=== PATIENT | female | born 1960 | race Caucasian/White ===

== ENCOUNTER 2018-09-11 17:27 | Emergency (ER) | payer BC, OTHER ==
[2018-09-11 17:54] VITALS: BP 107/65
[2018-09-11] MEDS ORDERED: Albuterol 2.5 MG/3 ML NEB.SOL* (0.083%) INH ONE (18:06)
--- NOTE | 2018-09-11 18:06 | UC ---
Respiratory Complaint HPI - HPI Summary HPI Summary: treated for bronchitis a few weeks ago rx tesruiz, ronalddejan and prednisone has been using her luis inhaler--no fevers---feels like symptoms are returning--- chest hurts to cough gets relief with MDI - History of Current Complaint Chief Complaint: UCRespiratory Stated Complaint: COUGH Time Seen by Provider: 09/11/18 17:54 Hx Obtained From: Patient ?: No Onset/Duration: Gradual Onset, Lasting Days, Still Present Timing: Constant Pain Intensity: 0 Character: Cough: Nonproductive Aggravating Factors: Deep Breaths Alleviating Factors: Bronchodilator Associated Signs And Symptoms: Positive: Pleuritic Chest Pain, URI - Allergies/Home Medications Allergies/Adverse Reactions: Allergies Allergy/AdvReac Type Severity Reaction Status Date / Time Penicillins Allergy Rash And Verified 09/11/18 17:54 Itching Home Medications: Home Medications Alendronate Sodium [Fosamax-] 70 mg PO Q7D 09/11/18 [History Confirmed 09/11/18] Multivitamin [Multivitamins] 1 cap PO DAILY 09/11/18 [History Confirmed 09/11/18 ] Sertraline* [Zoloft*] 50 mg PO DAILY 09/11/18 [History Confirmed 09/11/18] PMH/Surg Hx/FS Hx/Imm Hx Psychological History: Depression - Surgical History Surgical History: None - Family History Known Family History: Positive: None - Social History Occupation: Works From/At Home Lives: With Family Alcohol Use: Weekly Alcohol Amount: 3X Substance Use Type: None Smoking Status (MU): Former Smoker Review of Systems All Other Systems Reviewed And Are Negative: Yes Constitutional: Positive: Negative Skin: Positive: Negative Eyes: Positive: Negative ENT: Positive: Negative Respiratory: Positive: Cough Cardiovascular: Positive: Negative Gastrointestinal: Positive: Negative Genitourinary: Positive: Negative Motor: Positive: Negative Neurovascular: Positive: Negative Musculoskeletal: Positive: Negative Neurological: Positive: Negative Psychological: Positive: Negative Is Patient Immunocompromised?: No Physical Exam Triage Information Reviewed: Yes Appearance: Well-Appearing, No Pain Distress, Well-Nourished Vital Signs: Initial Vital Signs Temp 99.2 F 09/11/18 17:51 Pulse 75 09/11/18 17:51 Resp 16 09/11/18 17:51 BP 107/65 09/11/18 17:51 Pulse Ox 98 09/11/18 17:51 Vital Signs Reviewed: Yes Eye Exam: Normal Eyes: Positive: Conjunctiva Clear ENT Exam: Normal ENT: Positive: Normal ENT inspection, Hearing grossly normal. Negative: Nasal congestion, Trismus, Muffled voice, Hoarse voice Neck exam: Normal Neck: Positive: Supple, Nontender, No Lymphadenopathy Respiratory Exam: Normal Respiratory: Positive: Chest non-tender, Lungs clear, Normal breath sounds, No respiratory distress, No accessory muscle use Cardiovascular Exam: Normal Cardiovascular: Positive: RRR, No Murmur, Pulses Normal, Brisk Capillary Refill Musculoskeletal Exam: Normal Musculoskeletal: Positive: Strength Intact, ROM Intact, No Edema Neurological Exam: Normal Neurological: Positive: Alert, Muscle Tone Normal Psychological Exam: Normal Skin Exam: Normal Respiratory Course/Dx - Course Course Of Treatment: albuterol, prednisone, zyrtec if sx fail to resolve or worsen add doxycycline follow with pcp - Differential Dx/Diagnosis Provider Diagnosis: Allergic bronchitis without complication Discharge - Sign-Out/Discharge Documenting (check all that apply): Patient Departure All imaging exams completed and their final reports reviewed: No Studies - Discharge Plan Condition: Stable Disposition: HOME Prescriptions: Albuterol 2.5MG/3ML (0.083%)* [Ventolin 2.5 MG/3 ML NEB.JULIO*] 2.5 mg INH Q4H PRN #1 bar PRN Reason: Cough Albuterol HFA INHALER* [Ventolin HFA Inhaler*] 2 puff INH Q4H PRN #1 mdi PRN Reason: Cough Cetirizine* [ZyrTEC 10 MG TAB*] 10 mg PO DAILY #15 tab DOXYcycline CAP(*) [DOXYcycline 100MG CAP(*)] 100 mg PO BID #14 cap predniSONE [Prednisone 20 MG TAB] 20 mg PO DAILY #7 tablet Patient Education Materials: Upper Respiratory Infection (ED), Viral Syndrome ( ED) Referrals: Dwayne Marvin MD [Primary Care Provider] - If Needed - Billing Disposition and Condition Condition: STABLE Disposition: Home
== END 2018-09-11 18:20 | disposition home or self-care (01) ==
LOC: UCEAST 17:27
DX: J45.909 Unspecified asthma, uncomplicated (principal); Z88.0 Allergy status to penicillin; F32.9 Major depressive disorder, single episode, unspecified; Z87.891 Personal history of nicotine dependence
CPT/HCPCS: 99212; G0463

== ENCOUNTER 2024-04-27 17:35 | Inpatient (IN) ==
[2024-04-27 18:01] LABS: ABS Basophils 0.1 10^3/uL (0.0-0.1); ABS Eosinophils 0.2 10^3/uL (0.0-0.5); ABS Lymphocytes 2.2 10^3/uL (1.0-4.8); ABS Monocytes 0.6 10^3/uL (0.0-0.9); ABS Neutrophils 1.5 10^3/uL (1.5-7.6); Eosinophil % 4.3 %; Hematocrit 38.9 % (35-45); Hemoglobin 13.3 g/dL (11.5-14.3); Lymphocyte % 48.8 %; Mean Corpuscular Hgb Conc 34.2 g/dL (31-36); Mean Corpuscular Volume 96.5 fL (80-97); Mean Platelet Volume 6.5 fL (7.5-11.2); Platelet Count 237 10^3/uL (150-450); Red Blood Count 4.03 10^6/uL (3.63-4.92); Red Cell Distribution Width 13.7 % (12-17); White Blood Count 4.6 10^3/uL (3.8-11.8)
[2024-04-27 18:31] LABS: Urine Appearance Clear; Urine Bilirubin Negative (Negative); Urine Blood Negative (Negative); Urine Color Light-Yellow; Urine Glucose Negative (Negative); Urine Ketones Negative (Negative); Urine Nitrite Negative (Negative); Urine Protein Negative (Negative); Urine Specific Gravity 1.013 (1.002-1.030); Urine Urobilinogen Negative (Negative)
[2024-04-27] MEDS: Charcoal Activated/SORBITOL 50 GM/240 ML BTL PO ONE (18:34)
[2024-04-27 18:43] LABS: ALT 94 U/L (7-52); AST 107 U/L (13-39); Acetaminophen 16 mcg/mL; Alcohol, S 228 mg/dL (<13); Alkaline Phosphatase 52 U/L (35-149); Anion Gap 9 mmol/L (2-16); Blood Urea Nitrogen 15 mg/dL (6-24); CO2 Carbon Dioxide 29 mmol/L (22-32); Chloride 101 mmol/L (101-111); Creatinine, Serum 0.69 mg/dL (0.51-0.95); Globulin 2.5 g/dL (2-4); Glucose 79 mg/dL (70-100); Potassium 4.1 mmol/L (3.5-5.0); Salicylate < 2.50 mg/dL (<30); Sodium 139 mmol/L (135-145); Total Bilirubin 0.5 mg/dL (0.2-1.0); Total Protein 7.5 g/dL (6.4-8.9); eGFR CKD-EPI 97.5 (>60)
[2024-04-27 18:50] LABS: Urine Benzodiazepine Screen None Detected (None Detect); Urine Cannabinoids Screen None Detected (None Detect); Urine Opiates Screen None Detected (None Detect)
[2024-04-27 18:57] LABS: TSH Ultra Thyroid Stim Horm 1.19 mcIU/mL (0.34-5.60)
[2024-04-27 21:53] LABS: INR 0.97 (0.85-1.14)
[2024-04-27 22:12] LABS: Albumin 4.8 g/dL (3.5-5.7); Albumin/Globulin Ratio 2.1 (1-3); Calcium 9.9 mg/dL (8.6-10.3); Creatinine, Serum 0.73 mg/dL (0.51-0.95); Globulin 2.3 g/dL (2-4); Potassium 4.1 mmol/L (3.5-5.0); Total Bilirubin 0.5 mg/dL (0.2-1.0); Total Protein 7.1 g/dL (6.4-8.9); eGFR CKD-EPI 92.3 (>60)
[2024-04-28] MEDS: Ondansetron ODT 4 mg TAB 4 MG TAB SL STA ×2 (00:54→04:24)
[2024-04-28 01:52] LABS: ALT 97 U/L (7-52); AST 107 U/L (13-39); Acetaminophen < 15 mcg/mL; Albumin/Globulin Ratio 2.2 (1-3); Alkaline Phosphatase 52 U/L (35-149); Direct Bilirubin 0.1 mg/dL (0.03-0.18); Globulin 2.3 g/dL (2-4); Indirect Bilirubin 0.5 mg/dL (0.3-1.0); Total Bilirubin 0.6 mg/dL (0.2-1.0); Total Protein 7.3 g/dL (6.4-8.9)
[2024-04-28] MEDS ORDERED: Al Hydrox/Mg Hydrox/Simet LIQ 30 ML UDC PO PRN (04:23)
[2024-04-28] MEDS: Vitamin THERAPEUTIC TAB PO SCH (09:59)
[2024-04-28] MEDS: Thiamine 100 MG/ML 2 ml VIAL (200 mg) IM ONE (12:03)
[2024-04-28] MEDS: Multivitamins/Minerals TAB PO SCH (17:14)
[2024-04-30] MEDS ORDERED: CMCS: Alendronate 70 mg TAB (NF) PO SCH (07:00)
[2024-05-01] MEDS: Alendronate 70 mg TAB (NF) PO SCH (08:58)
[2024-05-02 10:05] VITALS: BP 107/77
== END 2024-05-02 14:40 | disposition home or self-care (01) | DRG 812 ==
LOC: ED 17:35 → EDHOLD 04-28 04:23 → BSU 04-28 06:01
PROVIDERS: ADMIT Psychiatry & Neurology Psychiatry; ATTEND Student in an Organized Health Care Education/Training Program